=== PATIENT | female | born 1975 | race Caucasian/White ===

== ENCOUNTER 2021-11-09 02:53 | Emergency (ER) | payer BC ==
[2021-11-09 03:16] VITALS: BP 137/81; PULSE 80; TEMP 97.8; BMI 30.8
[2021-11-09] MEDS ORDERED: MECLIZINE HCL 25 MG TABLET (FP) PO ONE (04:04)
[2021-11-09] MEDS ORDERED: SODIUM CHLORIDE 0.9% 500 ML INFUS.BAG IV ONE (04:05)
[2021-11-09 04:25] LABS: BASO % 1.1 % (0-2.0); EOS % 3.8 % (0-4.5); HEMATOCRIT 37.7 % (32.4-45.2); HEMOGLOBIN 12.7 GM/dL (10.7-15.3); LYMPH % 25.8 % (8-40); MCH 29.4 pg (25.7-33.7); MCHC 33.7 g/dl (32.0-36.0); MEAN CELL VOLUME 87.3 fl (80-96); MEAN PLT VOLUME 6.9 fl (7.5-11.1); MONO % 10.5 % (3.8-10.2); NEUT % 58.8 % (42.8-82.8); PLATELET COUNT 320 10^3/uL (134-434); RBC 4.32 M/mm3 (3.60-5.2); RDW 14.1 % (11.6-15.6); WHITE BLOOD COUNT 6.6 K/mm3 (4.0-10.0)
[2021-11-09 04:46] LABS: CALCIUM 8.3 mg/dL (8.5-10.1)
[2021-11-09 04:47] LABS: ALBUMIN 3.4 g/dl (3.4-5.0); BLOOD UREA NITROGEN 8.6 mg/dL (7-18)
[2021-11-09 04:50] LABS: CREATININE 0.6 mg/dL (0.55-1.3)
[2021-11-09 04:51] LABS: TOT PROT 6.8 g/dl (6.4-8.2)
[2021-11-09 04:52] LABS: BILIRUBIN,TOTAL 0.2 mg/dL (0.2-1)
== END 2021-11-09 06:45 | disposition home or self-care (01) ==
LOC: JER 02:53
DX: R42 Dizziness and giddiness (principal); S09.90XA Unspecified injury of head, initial encounter; W19.XXXA Unspecified fall, initial encounter
CPT/HCPCS: 36415; 70450-TC; 80053; 85025; 93005; 93010; 99285-25

== ENCOUNTER 2022-07-05 15:11 | Emergency (ER) | payer BC, OTHER ==
[2022-07-05 15:22] VITALS: BP 119/60; PULSE 103; RESP 18; TEMP 98.2; BMI 28.0
[2022-07-05 18:02] LABS: URINE APPEARANCE CLEAR; URINE BILIRUBIN NEGATIVE (NEGATIVE); URINE COLOR YELLOW; URINE GLUCOSE (UA) NEGATIVE (NEGATIVE); URINE KETONE NEGATIVE (NEGATIVE); URINE LEUK ESTERASE NEGATIVE (NEGATIVE); URINE NITRITE NEGATIVE (NEGATIVE); URINE PROTEIN NEGATIVE (NEGATIVE); URINE UROBILINOGEN 0.2 mg/dL (0.2-1.0)
[2022-07-05 18:05] LABS: HCG,QUALITATIVE URINE Negative
== END 2022-07-05 19:05 | disposition home or self-care (01) ==
LOC: JERFT 15:11 → JER 15:11 → JERFT 19:05
DX: D25.9 Leiomyoma of uterus, unspecified (principal)
CPT/HCPCS: 76856-TC; 81003; 84703; 87086; 99284-25

== ENCOUNTER 2023-04-15 04:24 | Day surgery (SDC) | payer OTHER ==
[2023-04-13 11:03] VITALS: BMI 31.4
[2023-04-15 09:24] VITALS: TEMP 97.8
[2023-04-15 09:52] VITALS: BP 114/57; PULSE 67; RESP 19
== END 2023-04-15 10:02 | disposition home or self-care (01) ==
LOC: JASU-ENDO 04:24
PROVIDERS: ATTEND Internal Medicine Gastroenterology
PROC: 0DBH8ZX Excision of Cecum, Via Natural or Artificial Opening Endoscopic, Diagnostic (ICD-10-PCS; 2023-04-15)
PROC: 0DBN8ZX Excision of Sigmoid Colon, Via Natural or Artificial Opening Endoscopic, Diagnostic (ICD-10-PCS; principal; 2023-04-15 08:00)
DX: Z12.11 Encounter for screening for malignant neoplasm of colon (principal); D12.0 Benign neoplasm of cecum; D12.5 Benign neoplasm of sigmoid colon; K64.8 Other hemorrhoids
CPT/HCPCS: 88305-TC